=== PATIENT | female | born 1970 | race Caucasian/White ===

== ENCOUNTER → 2020-10-28 13:06 | Outpatient (BNVA) | payer OTHER, SELFPAY | PROVIDERS: PCP Student in an Organized Health Care Education/Training Program; Visit Provider Specialist | DX: G43.909 Migraine, unspecified, not intractable, without status migrainosus (principal); M54.9 Dorsalgia, unspecified; M54.2 Cervicalgia; R20.0 Anesthesia of skin; R20.2 Paresthesia of skin; Z87.891 Personal history of nicotine dependence | CPT/HCPCS: 99204 ==

== ENCOUNTER 2020-11-19 07:47 | Outpatient (CLI) | payer OTHER, SELFPAY ==
--- NOTE | 2020-11-19 08:11 | MR_ITS ---
WS: [id number] MRI THORACIC SPINE WITHOUT CONTRAST TECHNIQUE: Sagittal T1, T2 and STIR imaging. Axial T2 imaging. Noncontrast imaging obtained. CLINICAL INFORMATION: M54.9 - Dorsalgia, unspecified COMPARISON: None. FINDINGS: Mild thoracic kyphosis. No acute compression. No high-grade central canal stenosis. Cord signal is no rmal. Mild chronic anterior wedging at T7-T9. Tiny central protrusions at T6-7 T7-T8 and T8-T9 witho ut significant central canal narrowing. Tiny left pericentral protrusion T9-T10.Moderate facet arthro simba lower thoracic spine. Mild bilateral T10-11 bony foraminal narrowing. Normal paravertebral soft tissues. Adrenal glands are normal. Normal caliber thoracic aorta. MR/MR thoracic spin wo con* [id number] IMPRESSION: 1. Mild thoracic kyphosis. No acute compression. No high-grade central canal n arrowing. 2. Cord signal is normal. 3. Mild chronic anterior wedging in the mid thoracic spine at T7-T9. 4. Tiny central protrusions at T6-7 T7-T8 and T8-T9 without significant centra l canal narrowing. Tiny left pericentral protrusion T9-T10. 5. Moderate facet arthropathy lower thoracic spine. Mild bilateral T10-11 bony foraminal narrowing.
--- NOTE | 2020-11-19 08:11 | MR_ITS ---
WS: [id number] MRI HEAD WITHOUT CONTRAST TECHNIQUE: Sagittal T1, T2 axial, T2 axial FLAIR, axial and coronal T1 images, axial susceptibility w eighted imaging, axial diffusion weighted images, and coronal T2 images were obtained. CLINICAL INFORMATION: R93.0 - Abnormal findings on diagnostic imaging of skull ... COMPARISON: None. FINDINGS: No evidence of restricted diffusion to suggest acute ischemia. Ventricular system and basal cisterns are patent. Mild patchy supratentorial white matter changes nonspecific in a patient this age but can be seen with hypertension, diabetes, collagen vascular disease and demyelinating disease. No infrate ntorial lesions. No extra-axial fluid collections. No evidence of mass or mass effect. Incidental jeanette chnoid cyst overlying the right frontal lobe with benign underlying remodeling of the calvarium. Arac hnoid cyst measures 1.4 x 0.8 cm. No hemosiderin on susceptibly weighted images. Normal optic chiasm and pituitary infundibulum. Modera te symmetric atrophy involving the temporal lobes and hippocampal formations advanced for patient thi s age. This is symmetric in appearance. Normal optic chiasm and pituitary infundibulum. Normal cavern ous sinuses and Meckel's cave. MR/MR head wo con* [id number] IMPRESSION: 1. No evidence of restricted diffusion to suggest acute ischemia. 2. Nonspecific patchy mild supratentorial white matter changes can be seen wit h hypertension diabetes, collagen vascular disease and demyelinating disease. 3. Corpus callosum is normal in appearance. 4. Incidental benign arachnoid cyst along the right frontal lobe with benign r emodeling of the calvarium. This measures 1.4 x 0.8 cm 5. Moderate symmetric atrophy involving the temporal lobes and hippocampal for mations advanced for patient this age. No underlying signal abnormalities in th e mesial temporal lobes.
--- NOTE | 2020-11-19 08:11 | MR_ITS ---
WS: [id number] MRI CERVICAL SPINE NONCONTRAST TECHNIQUE: Sagittal T1, T2 and STIR imaging. Axial T2, gradient, and fiesta imaging. CLINICAL INFORMATION: M54.2 - Cervicalgia COMPARISON: None. FINDINGS: Some images degraded by patient motion. Straightening of the normal cervical lordosis. No high-grade central canal narrowing. Mild disc bulging C3-C6. Cord signal appears normal considering motion artif act. C2-C3: Normal. C3-C4: Mild disc bulging with a tiny shallow central protrusion. Mild facet arthropathy. Mild left an d no significant right foraminal narrowing. Mild left facet arthropathy. C4-C5: Shallow left pericentral disc protrusion with mild central canal stenosis. Slight contact of t he left ventral cervical cord. Mild central canal stenosis. Mild facet arthropathy. Mild left foramin al narrowing. C5-C6: Shallow central disc protrusion. Mild central canal stenosis. Mild left greater than right for aminal narrowing. Mild facet arthropathy. C6-C7: Mild disc bulging. Spinal canal is patent. Mild left and no significant right foraminal narrow ing. C7-T1: Normal. Visualized brain stem structures: Normal. Prevertebral soft tissues: Normal. MR/MR cervical spin wo con* [id number] IMPRESSION: 1. Straightening of the normal cervical lordosis. No high-grade central canal narrowing. 2. Cord signal appears normal considering motion artifact. 3. Mild central canal stenosis C3-C4 C4-C5 and C5-C6 with small shallow protru sions. 4. Shallow left pericentral protrusion at C4-5 with slight indentation on cerv ical cord and mild central canal stenosis. 5. Mild bony foraminal narrowing left C3-C4, left C4-C5, left greater than rig ht C5-C6 and left C6-C7.
== END 2020-11-19 07:48 | disposition home or self-care (01) ==
PROVIDERS: PCP Student in an Organized Health Care Education/Training Program; Visit Provider Specialist
DX: M54.9 Dorsalgia, unspecified (principal); M54.2 Cervicalgia; R93.0 Abnormal findings on diagnostic imaging of skull and head, not elsewhere classified; G43.711 Chronic migraine without aura, intractable, with status migrainosus; M48.02 Spinal stenosis, cervical region; G93.0 Cerebral cysts; M47.894 Other spondylosis, thoracic region
CPT/HCPCS: 70551; 72141; 72146; 99204

== ENCOUNTER → 2020-11-30 16:02 | Outpatient (BNVA) | payer OTHER, SELFPAY | PROVIDERS: PCP Student in an Organized Health Care Education/Training Program; Visit Provider Specialist | DX: G56.02 Carpal tunnel syndrome, left upper limb (principal); R20.0 Anesthesia of skin; R20.2 Paresthesia of skin; Z87.891 Personal history of nicotine dependence | CPT/HCPCS: 95910 ==

== ENCOUNTER → 2020-12-20 08:04 | Outpatient (BNVA) | payer OTHER, SELFPAY | PROVIDERS: PCP Student in an Organized Health Care Education/Training Program; Visit Provider Specialist | DX: G43.711 Chronic migraine without aura, intractable, with status migrainosus (principal); M54.2 Cervicalgia; M79.7 Fibromyalgia; M54.9 Dorsalgia, unspecified; Z71.89 Other specified counseling | CPT/HCPCS: 99214 ==